=== PATIENT | female | born 1960 | race Caucasian/White ===

== ENCOUNTER 2016-04-26 01:06 | Observation (INO) ==
[2016-04-26] MEDS ORDERED: Ondansetron 4 MG/2 ML VIAL IVP ONE (01:29)
[2016-04-26] MEDS ORDERED: *HR* Morphine 2 MG/ML SYRINGE IVP ONE (01:29)
--- NOTE | 2016-04-26 01:33 | Emergency Department Note ---
Disposition Clinical Impression: Left upper limb pain Chest pain Qualifiers: Chest pain type: unspecified Qualified Code(s): R07.9 - Chest pain, unspecified Disposition: Admitted As Inpatient Condition: Good Time of Disposition: 04:20 Chest Pain HPI - General Chief Complaint: ED Extremity Problem,Nontraumatic Stated Complaint: left arm pain Vital Signs Reviewed: Yes Nursing Notes Reviewed: Yes - History of Present Illness HPI Narrative: 55-year-old female diabetic former smoker presents with left-sided chest and left upper extremity pain that started approximately 1 hour prior to arrival. She states she was sitting watching TV at the time that the pain started. She describes it as squeezing. Pain in her left chest and left upper extremity but started acutely identical times. No radiation to neck, back or abdomen. She has not walked since the pain started, however she mentioned that she had no worsening of her pain when she transferred from her chair to the squad that. She mentions she has been short of breath more than normal over the past 3 days. She took a nitroglycerin had no improvement of her pain. Her pain is accompanied with nausea. 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 Denies vomiting, diaphoresis, headache, recent illness, abdominal pain, back pain - Related Data Home Medications Medication Instructions Recorded Confirmed Albuterol Sulfate [Albuterol 2 puff IH Q4HR PRN 12/26/14 04/26/16 Inhaler] Aspirin 81 mg PO HS 12/26/14 04/26/16 Budesonide 1 mg IH BID PRN 12/26/14 04/26/16 Calcium Carbonate/Vitamin D3 1 tab PO DAILY 12/26/14 04/26/16 [Calcium 500-Vit D3 400 Tablet] Cetirizine HCl [Zyrtec] 10 mg PO HS 12/26/14 04/26/16 Cholecalciferol (Vitamin D3) 5,000 unit PO QWEEK 12/26/14 04/26/16 [Vitamin D3] Gabapentin [Neurontin] 900 mg PO TID 12/26/14 04/26/16 Glimepiride [Amaryl] 2 mg PO HS 12/26/14 04/26/16 Insulin ASPART [NovoLOG] 25 unit SQ TIDWM 12/26/14 04/26/16 Isosorbide MONOnitrate (24 HR) 30 mg PO DAILY 12/26/14 04/26/16 [Imdur] Levothyroxine [Synthroid] 25 mcg PO 0630 12/26/14 04/26/16 Meloxicam/Irr Cntr-Irr Cmb #2 7.5 mg PO 1400 12/26/14 04/26/16 [Comfort Pac-Meloxicam Kit] Metoprolol [Lopressor] 50 mg PO BID 12/26/14 01/16/15 Nitroglycerin [Nitrostat] 0.4 mg SL Q5-6MIN PRN 12/26/14 04/26/16 Omeprazole [PriLOSEC] 40 mg PO DAILY 12/26/14 04/26/16 Oxybutynin Chloride [Ditropan Xl] 20 mg PO DAILY 12/26/14 04/26/16 Oxycodone HCl/Acetaminophen 1 each PO TID PRN 12/26/14 04/26/16 [Endocet 10-325 mg Tablet] Ranolazine [Ranexa] 500 mg PO BID 12/26/14 04/26/16 SitaGLIPtin [Januvia] 100 mg PO DAILY 12/26/14 04/26/16 Verapamil [Isoptin] 120 mg PO TID 12/26/14 04/26/16 Estrogen,Con/M-Progest Acet 1 each PO HS 01/16/15 04/26/16 [Prempro 0.45-1.5 mg Tablet] Insulin Glargine,Hum.rec.anlog 42 unit SQ 01/16/15 04/26/16 [Lantus Solostar] Allergies Allergy/AdvReac Type Severity Reaction Status Date / Time aclidinium Allergy Headache Verified 04/26/16 01:08 [From Tudorza Pressair] metformin Allergy Headache Verified 04/26/16 01:08 onabotulinumtoxinA Allergy Anaphylaxis Verified 04/26/16 01:08 [From Botox] pioglitazone [From Actos] Allergy See Verified 04/26/16 01:08 Comments prochlorperazine Allergy Headache Verified 04/26/16 01:08 [From Compazine] Fikpyso-Nkv-Hgn Reductase Allergy See Verified 04/26/16 01:08 Inhibitor Comments [Statins] sumatriptan [From Imitrex] Allergy Headache Verified 04/26/16 01:08 artificial sweetners Allergy Headache Uncoded 04/26/16 01:08 All systems ED: reviewed and negative except as stated. Constitutional: Denies: fever, chills Eyes: Denies: eye pain ENT ED: Denies: ear pain Cardiovascular: Reports: as per HPI Respiratory: Denies: cough, dyspnea, wheezes Gastrointestinal: Reports: as per HPI. Denies: abdominal pain, vomiting Genitourinary: Denies: dysuria Integumentary: Denies: rash Neurological: Denies: headache Endocrine: Denies: fatigue Hematological/Lymphatic: Denies: easy bleeding Allergic/Immunologic: Denies: facial swelling Chest Pain PMH - Past Medical History Medical history: Reports: asthma, CHF, coronary artery disease, diabetes, migraine Surgical history: Reports: angioplasty/stent Psychiatric history: Reports: no psych history - Social History Smoking Status: Former smoker Alcohol use: Reports: none Drug use: Reports: none Physical Exam - General Limitations: no limitations General appearance: alert, in no apparent distress - Head Head exam: atraumatic, normocephalic - Eye Eye exam: Present: normal appearance, EOMI - ENT ENT exam: normal exam, normal oropharynx, mucous membranes moist - Neck Neck exam: Present: full ROM - Chest Chest inspection: Present: normal inspection, symmetric chest wall rise. Absent : tenderness - Respiratory Respiratory exam: Present: normal lung sounds bilaterally. Absent: respiratory distress - Cardiovascular Cardiovascular exam: Present: regular rate, normal rhythm - Abdominal Exam Abdominal exam: Present: soft, Non-Tender - Extremities Exam Extremities exam: Present: normal inspection, full ROM, normal capillary refill , other (BLE edema) - Back Exam Back exam: Present: full ROM - Neurological Exam Neurological exam: Present: alert, oriented X3 - Psychiatric Psychiatric exam: Present: normal affect, normal mood. Absent: depressed, agitated, anxious Course Course Narrative: Patient arrives from home via squad. Acute onset of chest pain approximately one hour prior to admission. Patient seen and examined. She is in no acute distress. Nontoxic. Workup initiated. Analgesics and antiemetics ordered. - Reevaluation(s) Reevaluation #1: At this point patient's workup is unremarkable. However due to recent onset less than one hour prior to admission, patient will likely need continued monitoring and repeat troponins. Time: 02:14 Reevaluation #2: Discussed patient with Dr. Shearer, who also had very sent with patient and agreed for admission for cardiac rule out. Patient was discussed with and accepted by hospitalist Dr. Zamudio Vital Signs Temperature 97.0 F L 04/26/16 01:09 Pulse Rate 83 04/26/16 01:09 Respiratory Rate 20 04/26/16 01:09 Blood Pressure 158/84 04/26/16 01:09 O2 Sat by Pulse Oximetry 94 L 04/26/16 01:09 Temperature 97.0 F L 04/26/16 01:09 Pulse Rate 75 04/26/16 05:30 Respiratory Rate 16 04/26/16 05:30 Blood Pressure 151/79 04/26/16 05:30 O2 Sat by Pulse Oximetry 97 04/26/16 05:30 Oxygen Delivery Oxygen Delivery Nasal Cannula Chest Pain - MDM Narrative Medical decision making narrative: Chest X-Ray 04/26/16 01:29 IMPRESSION: Mild cardiomegaly without evidence of acute pulmonary process. D/ / Kevan Yang MD / Kevan Yang MD Interpreting Provider: Kevan Yang MD All Lab Results (24 Hours) 04/26/16 04/26/16 04/26/16 Range/Units 01:23 01:23 01:23 WBC 7.5 (4.3-11.1) K/mcL RBC 4.19 (3.82-4.97) M/mcL Hgb 12.1 (11.5-15.4) g/dL Hct 38.6 (35.3-44.9) % MCV 92.1 (83.0-100.0) fL MCH 28.9 (28.0-33.3) pg MCHC 31.3 L (31.6-35.5) g/dL RDW 14.3 (11.5-14.5) % Plt Count 278 (140-400) K/mcL MPV 8.9 L (9.4-12.4) fL Immature Gran % 1.9 (0-4) % Seg Neutrophils % 61.8 % Lymphocytes % 28.0 % Monocytes % 7.9 % Eosinophils % 0.0 % Basophils % 0.4 % Neutrophils # 4.6 (1.6-8.9) K/mcL Lymphocytes # 2.1 (0.6-4.6) K/mcL Monocytes # 0.6 (0.0-1.3) K/mcL Eosinophils # 0.0 (0.0-0.6) K/mcL Basophils # 0.0 (0.0-0.2) K/mcL PT 11.7 (9.4-12.1) Seconds INR 1.1 APTT 29.5 (26.0-36.0) Seconds Sodium 139 (136-145) mEq/L Potassium 4.1 (3.5-4.5) mEq/L Chloride 101 (98-109) mEq/L Carbon Dioxide 30 H (19-29) mEq/L BUN 9 (7-20) mg/dL Creatinine 0.64 (0.57-1.11) mg/dL Est GFR ( Amer) > 60 (> 60) Est GFR (Non-Af Amer) > 60 (> 60) BUN/Creatinine Ratio 14 (6-26) Glucose 193 H (70-99) mg/dL Calculated Osmolality 292 (280-300) Calcium 9.0 (8.6-10.8) mg/dL Troponin I (0-0.03) ng/mL 04/26/16 Range/Units 01:23 WBC (4.3-11.1) K/mcL RBC (3.82-4.97) M/mcL Hgb (11.5-15.4) g/dL Hct (35.3-44.9) % MCV (83.0-100.0) fL MCH (28.0-33.3) pg MCHC (31.6-35.5) g/dL RDW (11.5-14.5) % Plt Count (140-400) K/mcL MPV (9.4-12.4) fL Immature Gran % (0-4) % Seg Neutrophils % % Lymphocytes % % Monocytes % % Eosinophils % % Basophils % % Neutrophils # (1.6-8.9) K/mcL Lymphocytes # (0.6-4.6) K/mcL Monocytes # (0.0-1.3) K/mcL Eosinophils # (0.0-0.6) K/mcL Basophils # (0.0-0.2) K/mcL PT (9.4-12.1) Seconds INR APTT (26.0-36.0) Seconds Sodium (136-145) mEq/L Potassium (3.5-4.5) mEq/L Chloride (98-109) mEq/L Carbon Dioxide (19-29) mEq/L BUN (7-20) mg/dL Creatinine (0.57-1.11) mg/dL Est GFR ( Amer) (> 60) Est GFR (Non-Af Amer) (> 60) BUN/Creatinine Ratio (6-26) Glucose (70-99) mg/dL Calculated Osmolality (280-300) Calcium (8.6-10.8) mg/dL Troponin I 0.00 (0-0.03) ng/mL - Lab Data Lab results reviewed: Yes I reviewed the patient's lab results. Result diagrams: 04/26/16 01:23 04/26/16 01:23 Lab Results 04/26/16 04/26/16 04/26/16 Range/Units 01:23 01:23 01:23 WBC 7.5 (4.3-11.1) K/mcL RBC 4.19 (3.82-4.97) M/mcL Hgb 12.1 (11.5-15.4) g/dL Hct 38.6 (35.3-44.9) % MCV 92.1 (83.0-100.0) fL MCH 28.9 (28.0-33.3) pg MCHC 31.3 L (31.6-35.5) g/dL RDW 14.3 (11.5-14.5) % Plt Count 278 (140-400) K/mcL MPV 8.9 L (9.4-12.4) fL Immature Gran % 1.9 (0-4) % Seg Neutrophils % 61.8 % Lymphocytes % 28.0 % Monocytes % 7.9 % Eosinophils % 0.0 % Basophils % 0.4 % Neutrophils # 4.6 (1.6-8.9) K/mcL Lymphocytes # 2.1 (0.6-4.6) K/mcL Monocytes # 0.6 (0.0-1.3) K/mcL Eosinophils # 0.0 (0.0-0.6) K/mcL Basophils # 0.0 (0.0-0.2) K/mcL PT 11.7 (9.4-12.1) Seconds INR 1.1 APTT 29.5 (26.0-36.0) Seconds Sodium 139 (136-145) mEq/L Potassium 4.1 (3.5-4.5) mEq/L Chloride 101 (98-109) mEq/L Carbon Dioxide 30 H (19-29) mEq/L BUN 9 (7-20) mg/dL Creatinine 0.64 (0.57-1.11) mg/dL Est GFR ( Amer) > 60 (> 60) Est GFR (Non-Af Amer) > 60 (> 60) BUN/Creatinine Ratio 14 (6-26) Glucose 193 H (70-99) mg/dL Calculated Osmolality 292 (280-300) Calcium 9.0 (8.6-10.8) mg/dL Troponin I (0-0.03) ng/mL 04/26/16 Range/Units 01:23 WBC (4.3-11.1) K/mcL RBC (3.82-4.97) M/mcL Hgb (11.5-15.4) g/dL Hct (35.3-44.9) % MCV (83.0-100.0) fL MCH (28.0-33.3) pg MCHC (31.6-35.5) g/dL RDW (11.5-14.5) % Plt Count (140-400) K/mcL MPV (9.4-12.4) fL Immature Gran % (0-4) % Seg Neutrophils % % Lymphocytes % % Monocytes % % Eosinophils % % Basophils % % Neutrophils # (1.6-8.9) K/mcL Lymphocytes # (0.6-4.6) K/mcL Monocytes # (0.0-1.3) K/mcL Eosinophils # (0.0-0.6) K/mcL Basophils # (0.0-0.2) K/mcL PT (9.4-12.1) Seconds INR APTT (26.0-36.0) Seconds Sodium (136-145) mEq/L Potassium (3.5-4.5) mEq/L Chloride (98-109) mEq/L Carbon Dioxide (19-29) mEq/L BUN (7-20) mg/dL Creatinine (0.57-1.11) mg/dL Est GFR ( Amer) (> 60) Est GFR (Non-Af Amer) (> 60) BUN/Creatinine Ratio (6-26) Glucose (70-99) mg/dL Calculated Osmolality (280-300) Calcium (8.6-10.8) mg/dL Troponin I 0.00 (0-0.03) ng/mL - Radiology Data Radiology results reviewed: Yes I reviewed the patient's radiology results. - EKG Data EKG attestation: Yes I reviewed and interpreted this EKG. EKG results narrative: No ST changes, low QRS voltage in precordial leads, EKG comparable to previous EKG from 09/06 Heart Score - Score History: Moderately Suspicious EKG: Normal Age: 45-65 Risk Factors: Equal/Greater than 3 risk factor or history of atherosclerotic disease Troponin: Less than normal limit HEART Score Total: 4 Attestation Statement - Attestation Attestation: For this encounter, I have reviewed the resident, GUN MECHANIC, or PA documentation, treatment plan, and medical decision making; and I have had face to face time with this patient. 55-year-old female presents with left arm pain and chest pain. Patient states that her symptoms started acutely while at rest, described as a squeezing pressure of the left upper extremity associated with a sharp and aching pain in the left upper chest. Patient states that she was nauseated and short of breath when this pain was present. Patient has a history of cardiac disease in the past. Initial troponin was negative. Patient will be admitted to the hospital for further care and evaluation of acute chest pain to rule out ACS.
[2016-04-26 01:35] LABS: Basophils % 0.4 %; Hematocrit 38.6 % (35.3-44.9); Hemoglobin 12.1 g/dL (11.5-15.4); Immature Granulocytes % 1.9 % (0-4); Lymphocytes # 2.1 K/mcL (0.6-4.6); Mean Corpuscular HGB Conc 31.3 g/dL (31.6-35.5); Mean Corpuscular Hemoglobin 28.9 pg (28.0-33.3); Mean Corpuscular Volume 92.1 fL (83.0-100.0); Mean Platelet Volume 8.9 fL (9.4-12.4); Monocytes # 0.6 K/mcL (0.0-1.3); Monocytes % 7.9 %; Neutrophils # 4.6 K/mcL (1.6-8.9); Platelet Count 278 K/mcL (140-400); Red Blood Count 4.19 M/mcL (3.82-4.97); Red Cell Distribution Width 14.3 % (11.5-14.5); Segmented Neutrophils % 61.8 %
[2016-04-26 01:41] LABS: INR 1.1; Prothrombin Time 11.7 Seconds (9.4-12.1)
[2016-04-26 01:44] LABS: Activated Partial Thrombo Time 29.5 Seconds (26.0-36.0)
[2016-04-26 01:48] LABS: BUN/Creatinine Ratio 14 (6-26); Blood Urea Nitrogen 9 mg/dL (7-20); Carbon Dioxide 30 mEq/L (19-29); Chloride 101 mEq/L (98-109); Glucose 193 mg/dL (70-99); Osmolality,Calculated 292 (280-300); Potassium 4.1 mEq/L (3.5-4.5); Sodium 139 mEq/L (136-145); eGFR For African Americans > 60 (> 60); eGFR For Non-African Americans > 60 (> 60)
[2016-04-26] MEDS ORDERED: *HR* OxyCODONE/APAP 5/325 TABLET PO ONE (03:51)
[2016-04-26] MEDS ORDERED: *HR* OxyCODONE/APAP 10/325 TABLET PO PRN ×2 (05:24→05:39)
[2016-04-26] MEDS ORDERED: Naloxone 0.4 MG/ML INJ IVP PRN (05:30)
[2016-04-26] MEDS ORDERED: Ondansetron 4 MG/2 ML VIAL IVP PRN (05:30)
[2016-04-26] MEDS ORDERED: *HR* Morphine 2 MG/ML SYRINGE IVP PRN (05:30)
[2016-04-26] MEDS ORDERED: *HR* Dextrose 50 % in Water (Syg) 50 ML SYRINGE IVP PRN (05:41)
[2016-04-26] MEDS ORDERED: D5% in Water 1,000 ML IV PRN (05:41)
[2016-04-26] MEDS ORDERED: Dextrose Gel 15 GM PO PRN ×2 (05:41)
[2016-04-26] MEDS ORDERED: Insulin LISPRO 300 UNITS/3 ML VIAL SQ SCH ×2 (06:00→08:00)
--- NOTE | 2016-04-26 06:05 | Internal Med History&Physical ---
Date of Encounter: 04/26/16 Time of Encounter: 05:15 Internal Medicine - H&P: HPI Chief complaint: Chest tightness and left upper arm cranps/tingling Admitted From: Emergency Dept Plans for Post Hospital Care: Home History of present illness: Ms. Bird is a 55 year old female with medival history significant for CAD s/p PCI (2011), HTN, DM2 on insulin, morbid obesity with OSAHS, former smoker. She presents with sudden onset chest tightness and left inner upper cramping while she was watching TV. tHE PAIN STARTED 1 HOUR BEFORE PRESENTATAION. Chest pain is "pressure/squeeze" No radiation of pain to neck, jaw, back or abdomen. She informed her daughter and EMS WAS CALLED. She too 2 tablets of nitroglycerine without relief. No nausea, vomiting, no diaphoresis. 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 She is FULL CODE as per discussion, she nominates her daughter (Lidia Bird) as her NOK/POA. Medical history: Reports: asthma, CHF, coronary artery disease, diabetes, migraine Surgical history: Reports: angioplasty/stent Psychiatric history: Reports: no psych history Smoking Status: Former smoker Alcohol use: Reports: none Drug use: Reports: none fAMILY hX: mother: CAD, CVA, heart dx, DVT, CKD, father: bone cancer, daughter: heart disease, HTN, HLD, sister: HTN, hld, CAD, A 10-point ROS was performed, positives and relevant negatives are detailed, system-symptoms not mentioned assumed negative unless otherwise stated. Vital Signs Temperature 97.0 F L 04/26/16 01:09 Pulse Rate 83 04/26/16 01:09 Respiratory Rate 20 04/26/16 01:09 Blood Pressure 158/84 04/26/16 01:09 O2 Sat by Pulse Oximetry 94 L 04/26/16 01:09 Temperature 97.0 F L 04/26/16 01:09 Pulse Rate 70 04/26/16 03:04 Respiratory Rate 16 04/26/16 03:04 Blood Pressure 151/82 04/26/16 03:04 O2 Sat by Pulse Oximetry 96 01/03/17 03:04 O/E: Not in distress, morbidily obese nOT PALE, anicteric, afebrile to touch, acyanotic HEENT: No cervical or jugular lymphadenopathy, Chest: cLINICALLY CLEAR, CHEST PAIN IS NO reproducible by palpation, passive or activ movements Heart: RRR, HS1/2. Abdomen: non-distended, soft, non-tender, no masses : No flank tenderness, no CVA tenderness, no suprapubic tenderness SENIOR TECHNICAL WRITER: AAO X 3, no gross focal neurological deficits SKIN: No active skin lesions. Extemities: No pedal edema. All Lab Results (24 Hours) 04/26/16 04/26/16 04/26/16 Range/Units 01:23 01:23 01:23 WBC 7.5 (4.3-11.1) K/mcL RBC 4.19 (3.82-4.97) M/mcL Hgb 12.1 (11.5-15.4) g/dL Hct 38.6 (35.3-44.9) % MCV 92.1 (83.0-100.0) fL MCH 28.9 (28.0-33.3) pg MCHC 31.3 L (31.6-35.5) g/dL RDW 14.3 (11.5-14.5) % Plt Count 278 (140-400) K/mcL MPV 8.9 L (9.4-12.4) fL Immature Gran % 1.9 (0-4) % Seg Neutrophils % 61.8 % Lymphocytes % 28.0 % Monocytes % 7.9 % Eosinophils % 0.0 % Basophils % 0.4 % Neutrophils # 4.6 (1.6-8.9) K/mcL Lymphocytes # 2.1 (0.6-4.6) K/mcL Monocytes # 0.6 (0.0-1.3) K/mcL Eosinophils # 0.0 (0.0-0.6) K/mcL Basophils # 0.0 (0.0-0.2) K/mcL PT 11.7 (9.4-12.1) Seconds INR 1.1 APTT 29.5 (26.0-36.0) Seconds Sodium 139 (136-145) mEq/L Potassium 4.1 (3.5-4.5) mEq/L Chloride 101 (98-109) mEq/L Carbon Dioxide 30 H (19-29) mEq/L BUN 9 (7-20) mg/dL Creatinine 0.64 (0.57-1.11) mg/dL Est GFR ( Amer) > 60 (> 60) Est GFR (Non-Af Amer) > 60 (> 60) BUN/Creatinine Ratio 14 (6-26) Glucose 193 H (70-99) mg/dL Calculated Osmolality 292 (280-300) Calcium 9.0 (8.6-10.8) mg/dL Troponin I (0-0.03) ng/mL 04/26/16 Range/Units 01:23 WBC (4.3-11.1) K/mcL RBC (3.82-4.97) M/mcL Hgb (11.5-15.4) g/dL Hct (35.3-44.9) % MCV (83.0-100.0) fL MCH (28.0-33.3) pg MCHC (31.6-35.5) g/dL RDW (11.5-14.5) % Plt Count (140-400) K/mcL MPV (9.4-12.4) fL Immature Gran % (0-4) % Seg Neutrophils % % Lymphocytes % % Monocytes % % Eosinophils % % Basophils % % Neutrophils # (1.6-8.9) K/mcL Lymphocytes # (0.6-4.6) K/mcL Monocytes # (0.0-1.3) K/mcL Eosinophils # (0.0-0.6) K/mcL Basophils # (0.0-0.2) K/mcL PT (9.4-12.1) Seconds INR APTT (26.0-36.0) Seconds Sodium (136-145) mEq/L Potassium (3.5-4.5) mEq/L Chloride (98-109) mEq/L Carbon Dioxide (19-29) mEq/L BUN (7-20) mg/dL Creatinine (0.57-1.11) mg/dL Est GFR ( Amer) (> 60) Est GFR (Non-Af Amer) (> 60) BUN/Creatinine Ratio (6-26) Glucose (70-99) mg/dL Calculated Osmolality (280-300) Calcium (8.6-10.8) mg/dL Troponin I 0.00 (0-0.03) ng/mL Lab Results 04/26/16 04/26/16 04/26/16 Range/Units 01:23 01:23 01:23 WBC 7.5 (4.3-11.1) K/mcL RBC 4.19 (3.82-4.97) M/mcL Hgb 12.1 (11.5-15.4) g/dL Hct 38.6 (35.3-44.9) % MCV 92.1 (83.0-100.0) fL MCH 28.9 (28.0-33.3) pg MCHC 31.3 L (31.6-35.5) g/dL RDW 14.3 (11.5-14.5) % Plt Count 278 (140-400) K/mcL MPV 8.9 L (9.4-12.4) fL Immature Gran % 1.9 (0-4) % Seg Neutrophils % 61.8 % Lymphocytes % 28.0 % Monocytes % 7.9 % Eosinophils % 0.0 % Basophils % 0.4 % Neutrophils # 4.6 (1.6-8.9) K/mcL Lymphocytes # 2.1 (0.6-4.6) K/mcL Monocytes # 0.6 (0.0-1.3) K/mcL Eosinophils # 0.0 (0.0-0.6) K/mcL Basophils # 0.0 (0.0-0.2) K/mcL PT 11.7 (9.4-12.1) Seconds INR 1.1 APTT 29.5 (26.0-36.0) Seconds Sodium 139 (136-145) mEq/L Potassium 4.1 (3.5-4.5) mEq/L Chloride 101 (98-109) mEq/L Carbon Dioxide 30 H (19-29) mEq/L BUN 9 (7-20) mg/dL Creatinine 0.64 (0.57-1.11) mg/dL Est GFR ( Amer) > 60 (> 60) Est GFR (Non-Af Amer) > 60 (> 60) BUN/Creatinine Ratio 14 (6-26) Glucose 193 H (70-99) mg/dL Calculated Osmolality 292 (280-300) Calcium 9.0 (8.6-10.8) mg/dL Troponin I (0-0.03) ng/mL 04/26/16 Range/Units 01:23 WBC (4.3-11.1) K/mcL RBC (3.82-4.97) M/mcL Hgb (11.5-15.4) g/dL Hct (35.3-44.9) % MCV (83.0-100.0) fL MCH (28.0-33.3) pg MCHC (31.6-35.5) g/dL RDW (11.5-14.5) % Plt Count (140-400) K/mcL MPV (9.4-12.4) fL Immature Gran % (0-4) % Seg Neutrophils % % Lymphocytes % % Monocytes % % Eosinophils % % Basophils % % Neutrophils # (1.6-8.9) K/mcL Lymphocytes # (0.6-4.6) K/mcL Monocytes # (0.0-1.3) K/mcL Eosinophils # (0.0-0.6) K/mcL Basophils # (0.0-0.2) K/mcL PT (9.4-12.1) Seconds INR APTT (26.0-36.0) Seconds Sodium (136-145) mEq/L Potassium (3.5-4.5) mEq/L Chloride (98-109) mEq/L Carbon Dioxide (19-29) mEq/L BUN (7-20) mg/dL Creatinine (0.57-1.11) mg/dL Est GFR ( Amer) (> 60) Est GFR (Non-Af Amer) (> 60) BUN/Creatinine Ratio (6-26) Glucose (70-99) mg/dL Calculated Osmolality (280-300) Calcium (8.6-10.8) mg/dL Troponin I 0.00 (0-0.03) ng/mL CXR: No cardiopulmonary process. EKG: NSR, No ST changes, low QRS voltage in precordial leads, no change from EKG of 09/06 Imp Atypical chest pain, probable ACS Chronic morbidities HTN HLD DM2 Morbid obesity FRANCOIS/HS. Admit Soft rule out repeat troponin at 6:00AM, IF NEGATIVE PROCEED TO STRESS TESTING. If postive then [facility] Lovenox single therapeutic dose Hx of [facility] in December 2014, RCA STENT PATENT, mild non-obstructive CAD, LVEF=55 % Keep NPO No beta agonist or drug with either direct suppressant cONTINUE OTHER MEDICATIONS OF CHRONIC MORBIDITIES. Past Med Surg Social Fam HX - Past Medical History Medical history: asthma, CHF, coronary artery disease, diabetes, migraine Psychiatric history: no psych history - Past Surgical History Surgical History: angioplasty/stent - Social History Smoking Status: Former smoker Smokeless Tobacco Status: No Alcohol use: none Drug use: none - Family History Father Age at : 79 Cause of : Bone cancer Hx Family Cardiac Disorders: No Hx Family Respiratory Disorders: No Hx Family Cancer: Yes (Bone cancer) Hx Family GI Disorders: No Hx Family Genitourinary Disorders: No Hx Family Endocrine Disorder: No Hx Family Musculoskeletal Disorders: No Hx Family Neuromuscular Disorders: No Hx Family Neurologic Disorders: No Hx Family HEENT Disorders: No Hx Family Autoimmune Disorders: No Hx Family Reproductive Disorders: No Hx Family Psychosocial Disorders: No Hx Family Medical Disorders: No Internal Medicine - H&P: Meds Albuterol Sulfate [Albuterol Inhaler] 2 puff IH Q4HR PRN 12/26/14 [History] Aspirin 81 mg PO HS 12/26/14 [History] Budesonide 1 mg IH BID PRN 12/26/14 [History] Calcium Carbonate/Vitamin D3 [Calcium 500-Vit D3 400 Tablet] 1 tab PO DAILY 08/06 [History] Cetirizine HCl [Zyrtec] 10 mg PO HS 12/26/14 [History] Cholecalciferol (Vitamin D3) [Vitamin D3] 5,000 unit PO QWEEK 12/26/14 [History] Gabapentin [Neurontin] 900 mg PO TID 12/26/14 [History] Glimepiride [Amaryl] 2 mg PO HS 12/26/14 [History] Insulin ASPART [NovoLOG] 20 - 25 unit SQ TIDWM 12/26/14 [History] Levothyroxine [Synthroid] 25 mcg PO 0630 12/26/14 [History] Meloxicam/Irr Cntr-Irr Cmb #2 [Comfort Pac-Meloxicam Kit] 7.5 mg PO 1400 [History] Metoprolol [Lopressor] 50 mg PO BID 12/26/14 [History] Nitroglycerin [Nitrostat] 0.4 mg SL Q5-6MIN PRN 12/26/14 [History] Omeprazole [PriLOSEC] 40 mg PO DAILY 12/26/14 [History] Oxybutynin Chloride [Ditropan Xl] 20 mg PO DAILY 12/26/14 [History] Oxycodone HCl/Acetaminophen [Endocet 10-325 mg Tablet] 1 tab PO TID PRN [History] Ranolazine [Ranexa] 500 mg PO BID 12/26/14 [History] SitaGLIPtin [Januvia] 100 mg PO DAILY 12/26/14 [History] Verapamil [Isoptin] 120 mg PO TID 12/26/14 [History] Estrogen,Con/M-Progest Acet [Prempro 0.45-1.5 mg Tablet] 1 each PO HS 01/16/15 [ History] Insulin Glargine,Hum.rec.anlog [Lantus Solostar] 42 unit SQ HS 01/16/15 [History ] Budesonide/Formoterol 80/4.5 [Symbicort 80/4.5] 1 puff IH BIDR 04/26/16 [ History] Clopidogrel [Plavix] 75 mg PO DAILY #30 tablet 04/26/16 [Rx] Isosorbide MONOnitrate (24 HR) [Imdur] 60 mg PO DAILY #30 tab.er.24h 04/26/16 [ Rx] Allergies aclidinium [From Tudorza Pressair] Allergy (Verified 04/26/16 01:08) Headache metformin Allergy (Verified 04/26/16 01:08) Headache onabotulinumtoxinA [From Botox] Allergy (Verified 04/26/16 01:08) Anaphylaxis pioglitazone [From Actos] Allergy (Verified 04/26/16 01:08) See Comments stomach issues prochlorperazine [From Compazine] Allergy (Verified 04/26/16 01:08) Headache Nqyptov-Lsd-Odg Reductase Inhibitor [Statins] Allergy (Verified 04/26/16 01:08) See Comments liver sumatriptan [From Imitrex] Allergy (Verified 04/26/16 01:08) Headache artificial sweetners Allergy (Uncoded 04/26/16 01:08) Headache All Systems PM: A 10-system review of systems was performed and is negative for pertinent findings except as documented above in the HPI. - Constitutional Vitals: Temp Pulse Resp BP Pulse Ox 97.0 F L 75 16 151/79 97 04/26/16 01:09 04/26/16 05:30 04/26/16 05:30 04/26/16 05:30 04/26/16 05:30 Internal Med - H&P Results - Labs CBC & Chem 7: 04/26/16 01:23 04/26/16 01:23
[2016-04-26] MEDS ORDERED: Regadenoson 0.4 MG/5 ML SYRINGE IVP ONE (06:06)
[2016-04-26] MEDS: Levothyroxine 25 MCG TABLET PO SCH ×2 (07:30→08:35)
[2016-04-26 07:37] LABS: Hemoglobin A1C 7.4 %
[2016-04-26 07:42] LABS: Chol/HDL Ratio 3.9 (0-4.9)
[2016-04-26] MEDS ORDERED: Ranolazine 500 MG TAB.ER.12H PO SCH (09:00)
[2016-04-26] MEDS ORDERED: Gabapentin 300 MG CAPSULE PO SCH (09:00)
[2016-04-26] MEDS ORDERED: *HR* SitaGLIPtin 100 MG TABLET PO SCH (09:00)
[2016-04-26] MEDS ORDERED: CALCIUM VIT D PO SCH (09:00)
--- NOTE | 2016-04-26 09:08 | Internal Med Progress Note ---
<Robin Feldman - Last Filed: 04/26/16 09:08> Date of Encounter: 04/26/16 - Constitutional Vitals: Temp Pulse Resp BP Pulse Ox 98.5 F 82 16 207/128 98 04/26/16 07:21 04/26/16 07:21 04/26/16 07:21 04/26/16 07:21 04/26/16 07:21 Internal Medicine: Result - Labs CBC & Chem 7: 04/26/16 01:23 04/26/16 01:23 Labs: Cardiac Enzymes 04/26/16 Range/Units 07:01 Troponin I 0.18 H* (0-0.03) ng/mL - ABG Interpretation ABG results: PT/INR, D-dimer PT 11.7 Seconds (9.4-12.1) 04/26/16 01:23 Consult Discharge Plan - Plan Referrals: Reynold Mehta MD [Primary Care Provider] - <Teddy Elder - Last Filed: 04/26/16 09:53> Date of Encounter: 04/26/16 Time of Encounter: 09:52 - Constitutional Vitals: Temp Pulse Resp BP Pulse Ox 98.5 F 82 16 207/128 98 04/26/16 07:21 04/26/16 07:21 04/26/16 07:21 04/26/16 07:21 04/26/16 07:21 Internal Medicine: Result - Labs CBC & Chem 7: 04/26/16 01:23 04/26/16 01:23 Labs: Cardiac Enzymes 04/26/16 Range/Units 07:01 Troponin I 0.18 H* (0-0.03) ng/mL - ABG Interpretation ABG results: PT/INR, D-dimer PT 11.7 Seconds (9.4-12.1) 04/26/16 01:23 - Attending Attestation I examined this patient and my medical decision-making was reviewed with the DOUBLE CUT OFF SAW OPERATOR/PA/Advanced Practice Nurse/Resident Physician. I agree with the documented findings, disposition and treatment plan as described except to the extent set forth below.
--- NOTE | 2016-04-26 10:27 | Cardiology Consult Note ---
<Blossom Quick - Last Filed: 04/26/16 10:37> Date of Encounter: 04/26/16 Time of Encounter: 10:30 Assessment and Plan (1) NSTEMI (non-ST elevated myocardial infarction) Status: Acute Troponin 0.00, 0.18. Typical chest pain symptoms. Last [facility] 12/2014: patent RCA stent, 70% dLAD (too small for intervention); otherwise mild, non-obstructive CAD. EF 55%. Recommend inpatient stay and [facility]; however patient is adamant to leave due to daughter's scheduled hand surgery tomorrow. Risks of AMA discussed--she verbalized understanding and accepts risks. No cardiac rehab consult due to leaving AMA. Increase nitrate to 60 mg daily. Start plavix. Start therapeutic lovenox. Will arrange for appt. with Dr. Grant later this week. Instructed patient to go to nearest Hospital with severe or prolonged symptoms. Discussion w patient/family: The assessment and plan as outlined above was discussed with the patient and/or family members who expressed understanding and agreement. All questions were answered. Thank you for involving us in the care of your patient. Please call with any questions. The patient will be discussed and reviewed with Dr. Malin; changes to be made accordingly. History of Present Illness Consult date: 04/26/16 Requesting physician: Teddy Elder Consult reason: NSTEMI Chief complaint: left arm pain History of present illness: Ms. Bird is a 55 year old female with PMH significant for CAD s/p PCI, DMII, FRANCOIS (CPAP compliant), HTN, HLD who presented to [facility] after sudden onset of left arm pain/"squeezing" that started around 12 midnight at rest. She took x3 NTG which did not alleviate pain, she then went to the ED. Associated symptoms include worsening dyspnea over the last week and increase in weakness. Reports a fall Aneta Day due to leg weakness. Reports compliance with medications and CPAP. Upon arrival to ED, initial troponin was 0.00 then 0.18. Report left arm pain is now mild, has improved. She has been hypertensive since admission, AM medications just administered. Past Med Surg Social Fam HX - Past Medical History Medical history: asthma, CHF (chronic, diastolic), coronary artery disease, diabetes, hyperlipidemia, hypertension, migraine Psychiatric history: no psych history - Past Surgical History Surgical History: angioplasty/stent - Social History Smoking Status: Former smoker Smokeless Tobacco Status: No Alcohol use: none Drug use: none - Family History Father Age at : 79 Cause of : Bone cancer Hx Family Cardiac Disorders: No Hx Family Respiratory Disorders: No Hx Family Cancer: Yes (Bone cancer) Hx Family GI Disorders: No Hx Family Genitourinary Disorders: No Hx Family Endocrine Disorder: No Hx Family Musculoskeletal Disorders: No Hx Family Neuromuscular Disorders: No Hx Family Neurologic Disorders: No Hx Family HEENT Disorders: No Hx Family Autoimmune Disorders: No Hx Family Reproductive Disorders: No Hx Family Psychosocial Disorders: No Hx Family Medical Disorders: No Medications and Allergies Albuterol Sulfate [Albuterol Inhaler] 2 puff IH Q4HR PRN 12/26/14 [History] Aspirin 81 mg PO HS 12/26/14 [History] Budesonide 1 mg IH BID PRN 12/26/14 [History] Calcium Carbonate/Vitamin D3 [Calcium 500-Vit D3 400 Tablet] 1 tab PO DAILY 08/06 [History] Cetirizine HCl [Zyrtec] 10 mg PO HS 12/26/14 [History] Cholecalciferol (Vitamin D3) [Vitamin D3] 5,000 unit PO QWEEK 12/26/14 [History] Gabapentin [Neurontin] 900 mg PO TID 12/26/14 [History] Glimepiride [Amaryl] 2 mg PO HS 12/26/14 [History] Insulin ASPART [NovoLOG] 20 - 25 unit SQ TIDWM 12/26/14 [History] Levothyroxine [Synthroid] 25 mcg PO 0630 12/26/14 [History] Meloxicam/Irr Cntr-Irr Cmb #2 [Comfort Pac-Meloxicam Kit] 7.5 mg PO 1400 [History] Metoprolol [Lopressor] 50 mg PO BID 12/26/14 [History] Nitroglycerin [Nitrostat] 0.4 mg SL Q5-6MIN PRN 12/26/14 [History] Omeprazole [PriLOSEC] 40 mg PO DAILY 12/26/14 [History] Oxybutynin Chloride [Ditropan Xl] 20 mg PO DAILY 12/26/14 [History] Oxycodone HCl/Acetaminophen [Endocet 10-325 mg Tablet] 1 tab PO TID PRN [History] Ranolazine [Ranexa] 500 mg PO BID 12/26/14 [History] SitaGLIPtin [Januvia] 100 mg PO DAILY 12/26/14 [History] Verapamil [Isoptin] 120 mg PO TID 12/26/14 [History] Estrogen,Con/M-Progest Acet [Prempro 0.45-1.5 mg Tablet] 1 each PO HS 01/16/15 [ History] Insulin Glargine,Hum.rec.anlog [Lantus Solostar] 42 unit SQ HS 01/16/15 [History ] Budesonide/Formoterol 80/4.5 [Symbicort 80/4.5] 1 puff IH BIDR 04/26/16 [ History] Clopidogrel [Plavix] 75 mg PO DAILY #30 tablet 04/26/16 [Rx] Isosorbide MONOnitrate (24 HR) [Imdur] 60 mg PO DAILY #30 tab.er.24h 04/26/16 [ Rx] Allergies aclidinium [From Tudorza Pressair] Allergy (Verified 04/26/16 01:08) Headache metformin Allergy (Verified 04/26/16 01:08) Headache onabotulinumtoxinA [From Botox] Allergy (Verified 04/26/16 01:08) Anaphylaxis pioglitazone [From Actos] Allergy (Verified 04/26/16 01:08) See Comments stomach issues prochlorperazine [From Compazine] Allergy (Verified 04/26/16 01:08) Headache Voxdodr-Zte-Gyk Reductase Inhibitor [Statins] Allergy (Verified 04/26/16 01:08) See Comments liver sumatriptan [From Imitrex] Allergy (Verified 04/26/16 01:08) Headache artificial sweetners Allergy (Uncoded 04/26/16 01:08) Headache All Systems Review: A 10-system review of systems was performed and is negative for pertinent findings except as documented above in the HPI. - Cardiovascular Cardiovascular: as per HPI Physical Examination Vital Signs, Last 4 Hours Temp Pulse Resp BP Pulse Ox 04/26/16 07:21 98.5 F 82 16 207/128 98 04/26/16 06:42 99.3 F 76 16 132/77 96 04/26/16 06:30 16 140/71 General: Conversant HEENT: Atraumatic, Normocephaly Cardiac: Reg Rate and Rhythm, Normal S1 and S2 Lungs: Other (Diminished throughout) Neuro: Alert and responsive Abdomen: Soft, Other (morbidly obese) Skin: No rashes noted on visualized skin Musculoskeletal: No Chest Wall Tenderness Extremities: Other (BLE edema, non-pitting. ) Results 04/26/16 01:23 04/26/16 01:23 Lab Results 04/26/16 07:01 Troponin I 0.18 H* - Imaging and Cardiology Echo: report reviewed Cardiac cath: report reviewed - EKG Interpretation EKG results cardiology: personally reviewed Consult Discharge Plan - Plan Instructions: Isosorbide Mononitrate (By mouth), Clopidogrel (By mouth), Myocardial Infarction (DC), Chest Pain (DC), Chronic Hypertension (DC) Additional Instructions: The cardiology office will call you with your time/date of appointment later this week. Increase your Imdur to 60mg daily. Take 75mg of plavix daily. Referrals: Reynold Mehta MD [Primary Care Provider] - Prescriptions: Clopidogrel [Plavix] 75 mg PO DAILY #30 tablet Isosorbide MONOnitrate (24 HR) [Imdur] 60 mg PO DAILY #30 tab.er.24h <DeaEugenia - Last Filed: 04/26/16 15:46> Date of Encounter: 04/26/16 Assessment and Plan Discussion w patient/family: The assessment and plan as outlined above was discussed with the patient and/or family members who expressed understanding and agreement. All questions were answered. Thank you for involving us in the care of your patient. Please call with any questions. History of Present Illness History of present illness: Ms. Bird is a 55 year old female All Systems Review: A 10-system review of systems was performed and is negative for pertinent findings except as documented above in the HPI. Results 04/26/16 01:23 04/26/16 01:23 Lab Results 04/26/16 07:01 Troponin I 0.18 H* - Attending Attestation I examined this patient and my medical decision-making was reviewed with the BUILDING INSPECTION ENGINEER/PA/Advanced Practice Nurse/Resident Physician. I agree with the documented findings, disposition and treatment plan. Ms. Bird presents with an elevated troponin in setting of symptoms she's experienced prior to her PCI in 2010. Her ASHLEY risk score is 5. We have recommended having her admitted to the hospital for further evaluation and LHC. The patient wants to leave to attend her daughter's hand surgery planned for tomorrow. We have strongly encouraged her to stay and have explained to her the risks of leaving which can include . The patient, and her daughter, expressed understanding but have declined staying. She will leave AMA. She was advised to seek emergent medical attention should her symptoms become worse. patient expressed understanding.
[2016-04-26] MEDS ORDERED: Isosorbide MONOnitrate (24 HR) 60 MG TAB.ER.24H PO SCH (10:45)
[2016-04-26 11:22] VITALS: BP 124/68
--- NOTE | 2016-04-26 13:07 | Discharge Summary ---
<Robin Feldman - Last Filed: 04/26/16 13:04> Date of Encounter: 04/26/16 Time of Encounter: 13:04 - Discharge Diagnosis (1) NSTEMI (non-ST elevated myocardial infarction) Priority: Primary Status: Acute (2) Chest pain Priority: Primary Status: Acute Qualifiers: Chest pain type: unspecified Qualified Code(s): R07.9 - Chest pain, unspecified (3) CAD (coronary artery disease) Priority: Secondary Status: Chronic Qualifiers: Coronary Disease-Associated Artery/Lesion type: bypass graft [place] vs. transplanted heart: [place] heart Associated angina: with unspecified angina Qualified Code(s): I25.709 - Atherosclerosis of coronary artery bypass graft(s) , unspecified, with unspecified angina pectoris (4) DM2 (diabetes mellitus, type 2) Priority: Secondary Status: Chronic Qualifiers: Diabetes mellitus complication status: with unspecified complications Diabetes mellitus superintendent container terminal insulin use: unspecified superintendent container terminal insulin use status Qualified Code(s): E11.8 - Type 2 diabetes mellitus with unspecified complications (5) HTN (hypertension) Priority: Secondary Status: Chronic Qualifiers: Hypertension type: essential hypertension Qualified Code(s): I10 - Essential (primary) hypertension (6) Obesity Priority: Secondary Status: Acute Qualifiers: Obesity severity: morbid Qualified Code(s): E66.01 - Morbid (severe) obesity due to excess calories - Discharge Medications Prescriptions: Clopidogrel [Plavix] 75 mg PO DAILY #30 tablet Isosorbide MONOnitrate (24 HR) [Imdur] 60 mg PO DAILY #30 tab.er.24h Home Medications: Albuterol Sulfate [Albuterol Inhaler] 2 puff IH Q4HR PRN 12/26/14 [History] Aspirin 81 mg PO HS 12/26/14 [History] Budesonide 1 mg IH BID PRN 12/26/14 [History] Calcium Carbonate/Vitamin D3 [Calcium 500-Vit D3 400 Tablet] 1 tab PO DAILY 08/06 [History] Cetirizine HCl [Zyrtec] 10 mg PO HS 12/26/14 [History] Cholecalciferol (Vitamin D3) [Vitamin D3] 5,000 unit PO QWEEK 12/26/14 [History] Gabapentin [Neurontin] 900 mg PO TID 12/26/14 [History] Glimepiride [Amaryl] 2 mg PO HS 12/26/14 [History] Insulin ASPART [NovoLOG] 20 - 25 unit SQ TIDWM 12/26/14 [History] Levothyroxine [Synthroid] 25 mcg PO 0630 12/26/14 [History] Meloxicam/Irr Cntr-Irr Cmb #2 [Comfort Pac-Meloxicam Kit] 7.5 mg PO 1400 [History] Metoprolol [Lopressor] 50 mg PO BID 12/26/14 [History] Nitroglycerin [Nitrostat] 0.4 mg SL Q5-6MIN PRN 12/26/14 [History] Omeprazole [PriLOSEC] 40 mg PO DAILY 12/26/14 [History] Oxybutynin Chloride [Ditropan Xl] 20 mg PO DAILY 12/26/14 [History] Oxycodone HCl/Acetaminophen [Endocet 10-325 mg Tablet] 1 tab PO TID PRN [History] Ranolazine [Ranexa] 500 mg PO BID 12/26/14 [History] SitaGLIPtin [Januvia] 100 mg PO DAILY 12/26/14 [History] Verapamil [Isoptin] 120 mg PO TID 12/26/14 [History] Estrogen,Con/M-Progest Acet [Prempro 0.45-1.5 mg Tablet] 1 each PO HS 01/16/15 [ History] Insulin Glargine,Hum.rec.anlog [Lantus Solostar] 42 unit SQ HS 01/16/15 [History ] Budesonide/Formoterol 80/4.5 [Symbicort 80/4.5] 1 puff IH BIDR 04/26/16 [ History] Clopidogrel [Plavix] 75 mg PO DAILY #30 tablet 04/26/16 [Rx] Isosorbide MONOnitrate (24 HR) [Imdur] 60 mg PO DAILY #30 tab.er.24h 04/26/16 [ Rx] Allergies/Adverse Reactions: Allergies aclidinium [From Tudorza Pressair] Allergy (Verified 04/26/16 01:08) Headache metformin Allergy (Verified 04/26/16 01:08) Headache onabotulinumtoxinA [From Botox] Allergy (Verified 04/26/16 01:08) Anaphylaxis pioglitazone [From Actos] Allergy (Verified 04/26/16 01:08) See Comments stomach issues prochlorperazine [From Compazine] Allergy (Verified 04/26/16 01:08) Headache Kegcyqv-Axv-Hom Reductase Inhibitor [Statins] Allergy (Verified 04/26/16 01:08) See Comments liver sumatriptan [From Imitrex] Allergy (Verified 04/26/16 01:08) Headache artificial sweetners Allergy (Uncoded 04/26/16 01:08) Headache Procedures/tests Complete & Pending: Procedures Performed prior 72 hours Category Date Time Status SP pharm nuclear stress Routine Y 04/26/16 07:30 Stop Req Date of admission: 04/26/16 04:01 Primary care physician: Reynold Mehta MD Consults: 04/26/16 08:43 Consult to Cardiology [CONS] Stat Comment: Consulting Provider: Cardiology [facility] Reason for Consult: cp, sudden onset, hx of CAD s/p stenting. Trop: 0.00, 0.18 Call Completed: No Discharging clinician: Teddy Elder Anticipated date of discharge: 04/26/16 - Patient Status Disposition: Left Against Medical Advice Condition: Undetermined Overall status at discharge: patient is not back to baseline - Discharge Instructions Instructions: Isosorbide Mononitrate (By mouth), Clopidogrel (By mouth), Myocardial Infarction (DC), Chest Pain (DC), Chronic Hypertension (DC) Follow Up With: Reynold Mehta MD [Primary Care Provider] - Additional Instructions: The cardiology office will call you with your time/date of appointment later this week. Increase your Imdur to 60mg daily. Take 75mg of plavix daily. Hospital course: Ms. Bird is a 55 year old female with medival history significant for CAD s/p PCI (2011), HTN, DM2 on insulin, morbid obesity with OSAHS, former smoker. She presents with sudden onset chest tightness and left inner upper cramping while she was watching TV. tHE PAIN STARTED 1 HOUR BEFORE PRESENTATAION. Chest pain is "pressure/squeeze" No radiation of pain to neck, jaw, back or abdomen. She informed her daughter and EMS WAS CALLED. She too 2 tablets of nitroglycerine without relief. No nausea, vomiting, no diaphoresis. Dr. Grant is her piece meat trimmer, and she has had non-schemic stress test in the past year, and LHC showing multiple coronary artery stenosis , no one had reached the threshold for placement of new stent. She is FULL CODE as per discussion, she nominates her daughter (Lidia Bird) as her NOK/POA. This discharge summary is being completed for a patient has decided to leave against medical advice. Patient presented to the ED with chest pain. The transparent was concerning to be cardiac in nature. Chest pain was some struggle which radiated to the left arm, and felt more like a pressure tightness. She had associated nausea and diaphoresis with chest pain. Chest pain was not relieved with nitroglycerin. In the emergency room she received aspirin, Plavix, metoprolol, and Imdur, and one dose of Lovenox. Cardiology was consulted. Final diagnosis of Patient with a NSTEMI. Troponins were 0.00, 0.18. Last [facility] 12/2014: patent RCA stent, 70% dLAD (too small for intervention); otherwise mild, non-obstructive CAD. EF 55%. Recommend inpatient stay and LHC; however patient is adamant to leave due to daughter's scheduled hand surgery tomorrow. Risks of AMA discussed--she verbalized understanding and accepts risks. No cardiac rehab consult due to leaving AMA. Increase nitrate to 60 mg daily. Start plavix. Start therapeutic lovenox. Will arrange for appt. with Dr. Grant later this week. Instructed patient to go to nearest Hospital with severe or prolonged symptoms. Chest X-Ray 04/26/16 01:29 IMPRESSION: Mild cardiomegaly without evidence of acute pulmonary process. D/ / Kevan Yang MD / Kevan Yang MD Interpreting Provider: Kevan Yang MD - Time Spent with Patient Total time spent providing and/or coordinating discharge services: Greater than 30 minutes - Constitutional Vitals: Temp Pulse Resp BP Pulse Ox 98.4 F 76 16 124/68 95 04/26/16 11:19 04/26/16 11:19 04/26/16 11:19 04/26/16 11:19 04/26/16 11:19 General appearance: Present: mild distress, A&O X 3 - Head Head exam: Present: atraumatic, normocephalic - Eye Eye exam: Present: PERRL, conjuntiva pink, sclera anicteric Pupils: Present: PERRL - Neck Neck exam general surgery: Present: supple, trachea midline. Absent: lymphadenopathy - Respiratory Respiratory exam: Present: CTAB. Absent: accessory muscle use, rales, rhonchi, wheezes - Cardiovascular Cardiovascular exam: Present: RRR, +S1, +S2. Absent: diastolic murmur, gallop, rubs, systolic murmur - GI/Abdominal GI/Abdominal exam: Present: normal bowel sounds, soft, no peritoneal signs. Absent: distended, tenderness - Extremities Exam Extremities exam: Present: pedal edema (2+ pitting). Absent: calf tenderness, cyanotic, normal inspection - Neurological Exam Neurological exam: Present: CN II-XII intact, oriented X3, no focal deficits. Absent: facial droop, speech deficit - Skin Skin exam: Present: dry, intact <Jael,Teddy P - Last Filed: 04/26/16 19:15> Date of Encounter: 04/26/16 Date of admission: 04/26/16 04:01 Primary care physician: Reynold Mehta MD Consults: 04/26/16 08:43 Consult to Cardiology [CONS] Stat Comment: Consulting Provider: Cardiology Vanessa Reason for Consult: cp, sudden onset, hx of CAD s/p stenting. Trop: 0.00, 0.18 Call Completed: No Hospital course: Ms. Bird is a 55 year old female - Time Spent with Patient Total time spent providing and/or coordinating discharge services: - Constitutional Vitals: Temp Pulse Resp BP Pulse Ox 98.4 F 76 16 124/68 95 04/26/16 11:19 04/26/16 11:19 04/26/16 11:19 04/26/16 11:19 04/26/16 11:19 - Attending Attestation I examined this patient and my medical decision-making was reviewed with the CRIMINAL INTELLIGENCE ANALYST/PA/Advanced Practice Nurse/Resident Physician. I agree with the documented findings, disposition and treatment plan as described except to the extent set forth below.
--- NOTE | 2016-04-26 14:35 | Electrocardiograph Report ---
[facility] Test Date: 2016-04-26 Pat Name: Radha Bird Department: [id number] Room: 3B22 Gender: F Senior Software Architect: EC : [id number] Requested By: Jimmie Lamar Order Number: [id number] Reading MD: Genaro Arrieta Measurements Intervals [place] Rate: 83 P: 48 MS: 208 QRS: 76 QRSD: 80 T: 74 QT: 372 QTc: 412 Interpretive Statements SINUS RHYTHM INDETERMINATE AXIS LOW QRS VOLTAGE IN PRECORDIAL LEADS Electronically Signed On 04-26-16 14:34:53 EST by Genaro Arrieta
[2016-04-26] MEDS ORDERED: *HR* Enoxaparin 120 MG/0.8 ML SYRINGE SQ SCH (18:00)
[2016-04-26] MEDS ORDERED: Insulin DETEMIR 100 UNIT/ML X5UNITS SQ SCH (21:00)
[2016-04-26] MEDS ORDERED: Loratadine 10 MG TABLET PO SCH (21:00)
[2016-04-26] MEDS ORDERED: Aspirin 81 MG TAB.CHEW PO SCH (21:00)
[2016-04-26] MEDS ORDERED: PREMPRO PO SCH (21:00)
[2016-04-26] MEDS ORDERED: *HR* Glimepiride 2 MG TABLET PO SCH (21:00)
[2016-05-01] MEDS ORDERED: Cholecalciferol (D-3) 1,000 UNIT TABLET PO SCH (09:00)
== END 2016-04-26 12:46 | disposition left against medical advice (07) ==
LOC: 3BNU 01:06 → EMEROO 01:06 → SUATTDRO 04:01 → 3BNU 06:30
PROVIDERS: ADMIT Internal Medicine Sleep Medicine; ATTEND Internal Medicine Sleep Medicine